=== PATIENT | male | born 1965 | race American Indian/Alaskan Native ===

== ENCOUNTER 2017-09-21 11:21 | Day surgery (SDC) | payer BC, OTHER ==
[~2017-09-21 11:21] MED LIST: Lactated Ringers 1,000 ML IV SCH; Propofol 200 MG/20 ML SDV ONE; Sodium Chloride 0.9% 10 ML Syringe FLUSH PRN; Sodium Chloride 0.9% 2.5 ML Syringe FLUSH PRN
--- NOTE | 2017-09-21 11:50 | PCM.PREANE ---
Preanesthetic Assessment - Procedure Proposed Procedure: colonoscopy - Anesthesia/Transfusion/Family Hx Anesthesia History: Prior Anesthesia Without Reaction Family History of Anesthesia Reaction: No Transfusion History: No Prior Transfusion(s) Intubation History: Unknown - Review of Systems General: No Symptoms Pulmonary: Other (hx smoking) Cardiovascular: No Symptoms Gastrointestinal: No Symptoms Neurological: No Symptoms Other: Reports: None (hx gout. on colchicine) - Physical Assessment NPO Status Date: 09/21/17 NPO Status Time: 00:00 Height: 1.75 m Weight: 92.986 kg ASA Class: 2 Mental Status: Alert & Oriented x3 Dentition: Reports: Normal Dentition, Langford(s) (back left) ROM/Head Extension: Full Lungs: Clear to Auscultation, Normal Respiratory Effort Cardiovascular: Regular Rate, Regular Rhythm - Allergies Allergies/Adverse Reactions: Allergies Allergy/AdvReac Type Severity Reaction Status Date / Time aspirin Allergy Airway Verified 09/19/17 11:32 Tightness - Blood Blood Available: No - Acknowledgements Anesthesia Type Planned: MAC Pt an Appropriate Candidate for the Planned Anesthesia: Yes Alternatives and Risks of Anesthesia Discussed w Pt/Guardian: Yes Pt/Guardian Understands and Agrees with Anesthesia Plan: Yes PreAnesthesia Questionnaire HEENT History: Reports: Cataract Cardiovascular History: Reports: Arrhythmia Other Cardiovascular History: hx of "palpitations" Musculoskeletal History: Reports: Gout Dermatologic History: Reports: Eczema - Past Surgical History Head Surgeries/Procedures: Reports: None Musculoskeletal Surgical History: Reports: Other (See Below) Other Musculoskeletal Surgeries/Procedures:: reconstructive surgery right ankle , has screws - SUBSTANCE USE Smoking Status *Q: Current Every Day Smoker Tobacco Use Within Last Twelve Months: Cigarettes Recreational Drug Use History: No - HOME MEDS Home Medications: Home Meds Colchicine [Colcrys] 0.6 mg PO DAILY 09/19/17 [History] - CURRENT (IN HOUSE) MEDS Current Meds: Current Medications Lactated Ringer's (Ringers, Lactated) 1,000 mls @ 125 mls/hr IV ASDIRECTED DESMOND Sodium Chloride (Saline Flush) 10 ml FLUSH ASDIRECTED PRN PRN Reason: Keep Vein Open Sodium Chloride (Saline Flush) 2.5 ml FLUSH ASDIRECTED PRN PRN Reason: Keep Vein Open Discontinued Medications Propofol (Diprivan 20 Ml) Confirm Administered Dose 200 mg .ROUTE .STK-MED ONE Stop: 09/21/17 10:36
[2017-09-21] MEDS ORDERED: Propofol 200 MG/20 ML SDV ONE ×4 (11:52→12:51)
[2017-09-21] MEDS ORDERED: Lidocaine 2% 5 ML SDV ONE (11:52)
[2017-09-21] MEDS ORDERED: fentaNYL 100 MCG/2 ML SDV ONE (12:57)
--- NOTE | 2017-09-21 13:29 | PCM.POSTAN ---
POST ANESTHESIA ASSESSMENT - MENTAL STATUS Mental Status: Alert, Oriented - RESPIRATORY Respiratory Status: Respiratory Rate WNL, Airway Patent, O2 Saturation Stable - CARDIOVASCULAR CV Status: Pulse Rate WNL, Blood Pressure Stable - GASTROINTESTINAL GI Status: No Symptoms - PAIN Pain Score: 0 - POST OP HYDRATION Hydration Status: Adequate & Stable
--- NOTE | 2017-09-21 13:31 | PCM.OPNOTE ---
- General Post-Op/Procedure Note Date of Surgery/Procedure: 09/21/17 Operative Procedure(s): Colonoscopy Findings: 3 sigmoid colon polyps, 7 hepatic flexure polyps, 4 rectal polyps, 1 descending colon Pre Op Diagnosis: Screening colonoscopy Post-Op Diagnosis: 3 sigmoid colon polyps, 7 hepatic flexure polyps, 4 rectal polyps, 1 descending colon Anesthesia Technique: MAC Condition: Good Free Text/Narrative:: Intake & Output 09/20/17 09/21/17 09/21/17 22:59 06:59 14:59 Intake Total 1000 Balance 1000
--- NOTE | 2017-09-21 13:40 | PCM48HPAN ---
Post Anesthesia Note - EVALUATION WITHIN 48HRS OF ANESTHETIC Vital Signs in Normal Range: Yes Patient Participated in Evaluation: Yes Respiratory Function Stable: Yes Airway Patent: Yes Cardiovascular Function Stable: Yes Hydration Status Stable: Yes Pain Control Satisfactory: Yes Nausea and Vomiting Control Satisfactory: Yes Mental Status Recovered: Yes
--- NOTE | 2017-09-21 16:21 | OR ---
SURGEON: RENE ROMERO MD DATE OF PROCEDURE: 09/21/2017 PREOPERATIVE DIAGNOSES: Screening colonoscopy, family history of colon polyps. POSTOPERATIVE DIAGNOSIS: Fifteen colon polyps. PROCEDURE PERFORMED: Colonoscopy with polypectomy and biopsy. ANESTHESIA: MAC. INSTRUMENT USED: Olympus colonoscope. EXTENT OF EXAM: To the cecum. PREPARATION: Good. LIMITATIONS: None. INDICATIONS: The patient is a 52-year-old male, whose twin brother recently had a colonoscopy and was found to have multiple colon polyps. Due to this the patient felt that he should come in to have a colonoscopy performed. We discussed the procedure, expected perioperative course, and risks including bleeding, infection, or damage to surrounding structures including perforation. The patient verbalized understanding and wishes to proceed. PROCEDURE IN DETAIL: The patient was brought into the endoscopy suite and placed in left lateral decubitus position. A time-out was completed verifying the patient's name, age, date of , allergies, and procedure to be performed. Monitored anesthesia care was induced and continuous oxygen was provided via nasal cannula throughout the procedure. After adequate sedation was achieved, the digital rectal exam was performed. This exam was within normal limits. A well-lubricated colonoscope was inserted in the rectum and advanced under direct visualization to the level of the cecum. The cecum was identified by both visual and anatomic landmarks. A photograph was taken of the cecal cap as well as with the scope retroflexed within the cecum. The scope was then fully withdrawn while examining the color, texture, and the integrity of the mucosa from the cecum to the anal canal. The patient was found to have 7 perihepatic flexure polyps, 1 descending colon polyp, 3 sigmoid colon polyps, and 4 rectal polyps. One hepatic flexure, 1 sigmoid colon polyp, and 1 rectal polyp were 1 to 2 cm in size. The hepatic flexure polyp that was large required multiple biopsy bites as it was flat and sessile. I grossly removed all the mass and injected ink under the area for identification of the same area later on. One sigmoid colon polyp and 1 rectal polyp were 1 to 2 cm in size and required a hot snare forceps in order to remove. The scope was retroflexed in the rectum to allow visualization of the anal canal opening. This appeared normal and a photograph was taken. The scope was then straightened out and removed from the patient. The cecum to anus time was greater than 30 minutes given the multiple number of polyps that were removed during this procedure. The patient was transferred to the PACU in stable condition. ENDOSCOPIC DIAGNOSES: 1. Sigmoid colon polyps x3. 2. Hepatic flexure polyps x7. 3. Rectal polyps x4. 4. Descending colon polyp x1. RECOMMENDATIONS: Follow up in clinic in 2 weeks. MAMIE NI /[id number]
== END 2017-09-21 14:10 | disposition home or self-care (01) ==
LOC: MW.SDS 11:21
PROVIDERS: ATTEND Surgery
DX: Z12.11 Encounter for screening for malignant neoplasm of colon (principal); D12.4 Benign neoplasm of descending colon; D12.3 Benign neoplasm of transverse colon; D12.5 Benign neoplasm of sigmoid colon; D12.8 Benign neoplasm of rectum; K63.5 Polyp of colon; M10.9 Gout, unspecified; M19.90 Unspecified osteoarthritis, unspecified site; F17.210 Nicotine dependence, cigarettes, uncomplicated; Z83.71 Family history of colonic polyps; Z88.8 Allergy status to other drugs, medicaments and biological substances; Z79.899 Other long term (current) drug therapy; Z98.890 Other specified postprocedural states
CPT/HCPCS: 45380; 45385; 88305; J3010; J7120; J2704

== ENCOUNTER 2018-12-27 07:57 | Day surgery (SDC) | payer BC, OTHER ==
[~2018-12-27 07:57] MED LIST changes: -Propofol 200 MG/20 ML SDV ONE; +Sodium Chloride 0.9% 10 ML SDV IV PRN
--- NOTE | 2018-12-27 09:50 | PCM.PREANE ---
Preanesthetic Assessment - Anesthesia/Transfusion/Family Hx Anesthesia History: Prior Anesthesia Without Reaction Family History of Anesthesia Reaction: No Transfusion History: No Prior Transfusion(s) Intubation History: Unknown - Review of Systems General: No Symptoms Pulmonary: No Symptoms Cardiovascular: No Symptoms Gastrointestinal: No Symptoms Neurological: No Symptoms Other: Reports: None - Physical Assessment NPO Status Date: 12/26/18 O2 Sat by Pulse Oximetry: 98 Respiratory Rate: 16 Vital Signs: Last Vital Signs Temp 97.2 F 12/27/18 08:33 Pulse 91 12/27/18 08:33 Resp 16 12/27/18 08:33 BP 180/97 H 12/27/18 08:33 Pulse Ox 98 12/27/18 08:33 Height: 5 ft 9 in Weight: 88.904 kg ASA Class: 2 Mental Status: Alert & Oriented x3 Airway Class: Mallampati = 1 Dentition: Reports: Normal Dentition ROM/Head Extension: Full Lungs: Clear to Auscultation, Normal Respiratory Effort Cardiovascular: Regular Rate, Regular Rhythm - Allergies Allergies/Adverse Reactions: Allergies Allergy/AdvReac Type Severity Reaction Status Date / Time aspirin Allergy Airway Verified 12/25/18 10:18 Tightness - Blood Blood Available: No - Anesthesia Plan Pre-Op Medication Ordered: None - Acknowledgements Anesthesia Type Planned: General Anesthesia, MAC Pt an Appropriate Candidate for the Planned Anesthesia: Yes Alternatives and Risks of Anesthesia Discussed w Pt/Guardian: Yes Pt/Guardian Understands and Agrees with Anesthesia Plan: Yes Additional Comments: PMH: is wearing event recorder to eval for intermittant arrythmias, has htn, gout, smoker PLAN: mac/tiva, if grounding pad used, place away from event recorder. 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 Respiratory History: Reports: Other (See Below) Other Respiratory History: recently has been tested for sleep apnea- no results yet Gastrointestinal History: Reports: Colon Polyp Musculoskeletal History: Reports: Fracture, Gout, Osteoarthritis Other Musculoskeletal History: hx of fx ankle and ribs Dermatologic History: Reports: Eczema Other Dermatologic History: uses CBD salve for eczema - Past Surgical History Head Surgeries/Procedures: Reports: None GI Surgical History: Reports: Colonoscopy Musculoskeletal Surgical History: Reports: ORIF Other Musculoskeletal Surgeries/Procedures:: reconstructive surgery right ankle , has screws - SUBSTANCE USE Smoking Status *Q: Current Every Day Smoker Tobacco Use Within Last Twelve Months: Cigarettes Recreational Drug Use History: No - HOME MEDS Home Medications: Home Meds Metoprolol Succinate 25 mg PO BEDTIME 12/25/18 [History] - CURRENT (IN HOUSE) MEDS Current Meds: Current Medications Lactated Ringer's (Ringers, Lactated) 1,000 mls @ 125 mls/hr IV ASDIRECTED DESMOND Last Admin: 12/27/18 08:42 Dose: 125 mls/hr Sodium Chloride (Saline Flush) 10 ml FLUSH ASDIRECTED PRN PRN Reason: Keep Vein Open Sodium Chloride (Saline Flush) 2.5 ml FLUSH ASDIRECTED PRN PRN Reason: Keep Vein Open Sodium Chloride (Saline Flush) 10 ml FLUSH ASDIRECTED PRN PRN Reason: Keep Vein Open Sodium Chloride (Saline Flush) 2.5 ml FLUSH ASDIRECTED PRN PRN Reason: Keep Vein Open Sodium Chloride (Normal Saline) 10 ml IV ASDIRECTED PRN PRN Reason: IV Use
[2018-12-27] MEDS ORDERED: Propofol 200 MG/20 ML SDV ONE ×2 (12:03→12:45)
[2018-12-27] MEDS ORDERED: Lidocaine 2% 5 ML SDV ONE (12:03)
[2018-12-27] MEDS ORDERED: Midazolam 1 MG/ML 2 ML SDV ONE (12:04)
[2018-12-27] MEDS ORDERED: fentaNYL 100 MCG/2 ML SDV ONE (12:04)
--- NOTE | 2018-12-27 13:24 | PCM.OPNOTE ---
- General Post-Op/Procedure Note Date of Surgery/Procedure: 12/27/18 Operative Procedure(s): Colonoscopy Findings: Hepatic flexure mass, hepatic flexure polyps x 2, rectal polyp x 2 Pre Op Diagnosis: History of colon polyps Post-Op Diagnosis: Hepatic flexure mass, hepatic flexure polyps x 2, rectal polyp x 2 Anesthesia Technique: MAC Primary Surgeon: Fiordaliza Mayer Condition: Good Free Text/Narrative:: Intake & Output 12/26/18 12/27/18 12/27/18 22:59 06:59 14:59 Intake Total 1000 Balance 1000
--- NOTE | 2018-12-27 13:54 | PCM48HPAN ---
Post Anesthesia Note - EVALUATION WITHIN 48HRS OF ANESTHETIC Vital Signs in Normal Range: Yes Patient Participated in Evaluation: Yes Respiratory Function Stable: Yes Airway Patent: Yes Cardiovascular Function Stable: Yes Hydration Status Stable: Yes Pain Control Satisfactory: Yes Nausea and Vomiting Control Satisfactory: Yes Mental Status Recovered: Yes Resp Rate: 16
--- NOTE | 2018-12-27 13:54 | PCM.POSTAN ---
POST ANESTHESIA ASSESSMENT - MENTAL STATUS Mental Status: Alert, Oriented - RESPIRATORY Respiratory Status: Respiratory Rate WNL, Airway Patent, O2 Saturation Stable - CARDIOVASCULAR CV Status: Pulse Rate WNL, Blood Pressure Stable - GASTROINTESTINAL GI Status: No Symptoms - POST OP HYDRATION Hydration Status: Adequate & Stable
--- NOTE | 2018-12-27 18:35 | OR ---
SURGEON: FIORDALIZA MAYER MD DATE OF PROCEDURE: 12/27/2018 PREOPERATIVE DIAGNOSIS: History of colon polyps. POSTOPERATIVE DIAGNOSES: 1. Hepatic flexure mass. 2. Hepatic flexure polyp x2. 3. Rectal polyps x2. PROCEDURE PERFORMED: Diagnostic colonoscopy. ENDOSCOPIST: Fiordaliza Mayer MD. ANESTHESIA: MAC. INSTRUMENT USED: Olympus colonoscope. EXTENT OF EXAM: To the cecum. PREPARATION: Good. LIMITATIONS: None. INDICATIONS FOR EXAMINATION: The patient is a 53-year-old male with a history of multiple polyps within the colon. I scoped him a little over 1 year ago and removed 12 tubular adenomas. The largest of these was at the hepatic flexure. This one was removed in piecemeal fashion. Given its size and the number of polyps that I took out, the decision was made to repeat his colonoscopy this year. The patient and I discussed the procedure, expected perioperative course, and risks including bleeding, infection, or damage to surrounding structures including perforation. The patient verbalized understanding and wishes to proceed. PROCEDURE IN DETAIL: The patient was brought into the endoscopy suite and placed in the left lateral decubitus position. A time-out was completed verifying the patient's name, age, date of , allergies, and procedure to be performed. Monitored anesthesia care was induced and continuous oxygen was provided via nasal cannula throughout the procedure. After adequate sedation was achieved, a digital rectal exam was performed. This exam was within normal limits. A well lubricated colonoscope was inserted into the rectum and advanced under direct visualization to the level of the cecum. The cecum was identified by both visual and anatomic landmarks. A photograph was taken of the cecal cap as well as with the scope retroflexed within the cecum. The scope was then straightened out and fully withdrawn while examining the color, texture, anatomy, and integrity of the mucosa from the cecum to the anal canal. At the hepatic flexure, I noted the ink area from my previous biopsy site. Unfortunately in others, large sessile polyp was located in this area. Given its size, I did not feel it was safe to remove it again in piecemeal fashion. Biopsies of it were taken and sent to Pathology, labeled as hepatic flexure mass. Two more polyps were found in the same area. These were small and sessile, and able to be removed using a cold biopsy forceps. They were labeled as hepatic flexure polyp #1 and #2. When the scope was brought into the rectum, 2 further polyps were noted. One was able to be removed using a cold biopsy forceps. The other one was large enough to require a hot snare. These were labeled as colon polyp #1 and #2. The scope was then retroflexed within the rectum to allow visualization of the anal canal opening. This appeared normal and photograph was taken. The scope was then straightened out and fully withdrawn. The cecum to anus time was 22 minutes. The patient tolerated the procedure well and was taken to the PACU in stable condition. ENDOSCOPIC DIAGNOSES: 1. Hepatic flexure mass. 2. Hepatic flexure polyp x2. 3. Rectal polyps x2. RECOMMENDATIONS: We will order for the patient to a colorectal surgeon for further workup and management of his hepatic flexure mass. MAMIE NI /[id number]
== END 2018-12-27 13:32 | disposition home or self-care (01) ==
LOC: MW.SDS 07:57
PROVIDERS: ATTEND Surgery
DX: D12.3 Benign neoplasm of transverse colon (principal); D12.8 Benign neoplasm of rectum; M19.90 Unspecified osteoarthritis, unspecified site; M10.9 Gout, unspecified; F17.210 Nicotine dependence, cigarettes, uncomplicated; Z98.890 Other specified postprocedural states; Z88.6 Allergy status to analgesic agent; Z79.899 Other long term (current) drug therapy; Z86.010 Personal history of colon polyps
CPT/HCPCS: 45380; J2001; J2250; J2704; J3010; J7120

== ENCOUNTER → 2021-10-28 | Day surgery (SDC) | payer BC, OTHER ==
[~2021-10-28] MED LIST changes: +Propofol 200 MG/20 ML SDV ONE; -Sodium Chloride 0.9% 10 ML SDV IV PRN; +Sodium Chloride 0.9% 20 ML SDV IV PRN; +fentaNYL 100 MCG/2 ML SDV ONE
== END | disposition home or self-care (01) ==
LOC: MW.SDS 08:44
PROVIDERS: ATTEND Surgery
DX: D12.4 Benign neoplasm of descending colon (principal); D12.5 Benign neoplasm of sigmoid colon; K64.1 Second degree hemorrhoids; M10.9 Gout, unspecified; I10 Essential (primary) hypertension; F17.210 Nicotine dependence, cigarettes, uncomplicated; G47.30 Sleep apnea, unspecified; Z88.8 Allergy status to other drugs, medicaments and biological substances; Z79.899 Other long term (current) drug therapy; Z90.49 Acquired absence of other specified parts of digestive tract; Z98.890 Other specified postprocedural states
CPT/HCPCS: 45380; J2704; J3010; J7120; 00811

== ENCOUNTER 2022-01-24 09:11 | Emergency (ER) | payer BC, OTHER ==
[2022-01-24] MEDS ORDERED: traMADol 50 MG Tab PO ONE (10:07)
[2022-01-24 10:56] LABS: BLOOD UREA NITROGEN,BUN 17 mg/dL (7.0-18.0); CARBON DIOXIDE,CO2 24.4 mmol/L (21.0-32.0); CHLORIDE,CL 98 mmol/L (98-107); GLUCOSE RANDOM 181 mg/dL (74-106); SODIUM,NA 132 mmol/L (136-148)
== END 2022-01-24 11:19 | disposition home or self-care (01) ==
LOC: MW.ED 09:11
DX: M19.90 Unspecified osteoarthritis, unspecified site (principal); I10 Essential (primary) hypertension; Z88.6 Allergy status to analgesic agent
CPT/HCPCS: 36415; 72131; 72192; 80053; 84550; 85025; 99284; A9270

== ENCOUNTER 2022-04-06 17:34 | Emergency (ER) | payer BC, OTHER ==
[2022-04-06] MEDS ORDERED: Ondansetron 4 MG/2 ML SDV IVPUSH ONE (17:36)
[2022-04-06] MEDS ORDERED: Morphine 4 MG/ML VIAL IVPUSH ONE (17:36)
[2022-04-06] MEDS ORDERED: Sodium Chloride 0.9% 1,000 ML IV SCH (17:45)
[2022-04-06] MEDS ORDERED: HYDROmorphone 1 MG/ML Syringe IVPUSH ONE ×2 (17:46→19:32)
[2022-04-06 18:19] LABS: CARBON DIOXIDE,CO2 26.2 mmol/L (21.0-32.0); POTASSIUM,K 3.7 mmol/L (3.5-5.1)
[2022-04-06] MEDS ORDERED: Tamsulosin 0.4 MG Cap.ER PO ONE (19:08)
== END 2022-04-06 20:53 | disposition home or self-care (01) ==
LOC: MW.ED 17:34
DX: N13.2 Hydronephrosis with renal and ureteral calculous obstruction (principal); G89.29 Other chronic pain; M25.50 Pain in unspecified joint; E78.00 Pure hypercholesterolemia, unspecified; I10 Essential (primary) hypertension; M10.9 Gout, unspecified; Z88.8 Allergy status to other drugs, medicaments and biological substances; Z79.899 Other long term (current) drug therapy
CPT/HCPCS: 36415; 73030; 74176; 80053; 81001; 85025; 96361; 96374; 96375; 96376; 99284; A9270; J1170; J2270; J2405; J7030

== ENCOUNTER 2023-05-25 09:29 | Emergency (ER) | payer BC, OTHER ==
[2023-05-25] MEDS ORDERED: Sodium Chloride 0.9% 1,000 ML IV ONE (10:06)
[2023-05-25 10:27] LABS: BASOPHILS PERCENT AUTO 0.5 % (0.0-1.5); EOSINOPHILS ABSOLUTE AUTO 0.1 K/uL (0.0-0.7); EOSINOPHILS PERCENT AUTO 0.9 % (0.0-7.0); HEMATOCRIT 45.6 % (38.0-50.0); HEMOGLOBIN 15.1 g/dL (13.0-17.0); LYMPHOCYTES ABSOLUTE AUTO 1.3 K/uL (0.6-2.4); LYMPHOCYTES PERCENT AUTO 14.9 % (16.0-40.0); MEAN CORPUSCULAR HEMOGLOBIN 29.9 pg (27.0-32.0); MEAN CORPUSCULAR HGB CONC 33.1 g/dL (31.0-37.0); MEAN CORPUSCULAR VOLUME 90.3 fL (80.0-98.0); MONOCYTES ABSOLUTE AUTO 0.7 K/uL (0.0-0.8); MONOCYTES PERCENT AUTO 8.2 % (0.0-15.0); NEUTROPHILS ABSOLUTE AUTO 6.4 K/uL (1.4-5.7); NEUTROPHILS PERCENT AUTO 75.5 % (48.0-80.0); NRBC ABSOLUTE 0 K/uL; PLATELET COUNT,PLT 274 K/uL (150-400); RED BLOOD CELL COUNT 5.05 M/uL (4.50-5.90)
[2023-05-25 10:32] LABS: ALBUMIN 3.7 g/dL (3.4-5.0); BILIRUBIN TOTAL 0.5 mg/dL (0.2-1.0); CALCIUM 8.5 mg/dL (8.5-10.1); CARBON DIOXIDE,CO2 28.6 mmol/L (21.0-32.0); CREATININE 1.2 mg/dL (0.8-1.3); EST CRCL DRUG DOSING (CG) 66.28 mL/min; MAGNESIUM 1.9 mg/dL (1.8-2.4); POTASSIUM,K 3.9 mmol/L (3.5-5.1); PROTEIN TOTAL,TP 7.3 g/dL (6.4-8.2); T3 FREE 2.77 pg/mL (2.18-3.98); T4 FREE 0.97 ng/dL (0.76-1.46); TSH ULTRASENSITIVE 0.47 uIU/mL (0.36-3.74)
== END 2023-05-25 11:40 | disposition home or self-care (01) ==
LOC: MW.ED 09:29
DX: R00.2 Palpitations (principal); I10 Essential (primary) hypertension; E78.00 Pure hypercholesterolemia, unspecified; Z88.8 Allergy status to other drugs, medicaments and biological substances; Z79.899 Other long term (current) drug therapy; Z72.0 Tobacco use
CPT/HCPCS: 36415; 71045; 80053; 83735; 84439; 84443; 84481; 84484; 85025; 93005; 96360; 99285; J7030; 93010; 99283